=== PATIENT | male | born 1985 | race African-American/Black ===

== ENCOUNTER 2016-12-10 19:26 | Emergency (ER) | payer SELFPAY ==
[2016-12-10 19:36] VITALS: BP 148/83; PULSE 110; TEMP 98.9; BMI 23.6
--- NOTE | 2016-12-10 19:45 | PDOC ---
History of Present Illness - General History Source: Patient Exam Limitations: No Limitations - History of Present Illness Initial Comments: 12/10/16 21:19 Patient is a 31 year old male with no significant past medical history who presents to the ED s/p fall that occurred 5 hours ago. Patient reports riding his longboard down a non steep long hill when he fell and landed on his right shoulder. Patient reports hearing a crack when falling on his shoulder. He reports he did not land on his head or hit his head in any way. Patient reports going to his gym immediately afterwards to have gym medical aids to attempt to fix it before coming to ED. Denies any loss of consciousness. Denies chest pain, SOB. Denies fever, chills. Denies nausea, vomiting. Denies abdominal extremity pain. Denies any other symptoms. Allergies: None Social history: None Surgical history: None PMD: None <Brandon Jim - Last Filed: 12/10/16 21:19> <Autumn Simmons - Last Filed: 12/13/16 06:06> - General Chief Complaint: Pain, Acute Stated Complaint: FELL OFF LONG BOARD HURT RIGHT SHOULDER Time Seen by Provider: 12/10/16 19:33 Past History <Brandon Jim - Last Filed: 12/10/16 21:19> - Past Medical History Other medical history: DENIES - Suicide/Smoking/Psychosocial Hx Smoking History: Current every day smoker Have you smoked in the past 12 months: Yes Number of Cigarettes Smoked Daily: 10 Information on smoking cessation initiated: No Hx Alcohol Use: Yes (SOCIAL) Drug/Substance Use Hx: No Substance Use Type: None <Autumn Simmons - Last Filed: 12/13/16 06:06> - Past Medical History Allergies/Adverse Reactions: Allergies Allergy/AdvReac Type Severity Reaction Status Date / Time No Known Allergies Allergy Verified 12/10/16 19:28 Home Medications: Ambulatory Orders NK [No Known Home Medication] 12/10/16 Review of Systems - Review of Systems Able to Perform ROS?: Yes Comments:: 12/10/16 21:19 GENERAL/CONSTITUTIONAL: No fever or chills. No weakness. HEAD, EYES, EARS, NOSE AND THROAT: No change in vision. No ear pain or discharge. No sore throat. GASTROINTESTINAL: No nausea, vomiting, diarrhea or constipation. GENITOURINARY: No dysuria, frequency, or change in urination. CARDIOVASCULAR: No chest pain or shortness of breath. RESPIRATORY: No cough, wheezing, or hemoptysis. MUSCULOSKELETAL: + RIght shoulder pain No joint or muscle swelling. No neck or back pain. SKIN: No rash NEUROLOGIC: No headache, vertigo, loss of consciousness, or change in strength/ sensation. ENDOCRINE: No increased thirst. No abnormal weight change. HEMATOLOGIC/LYMPHATIC: No anemia, easy bleeding, or history of blood clots. ALLERGIC/IMMUNOLOGIC: No hives or skin allergy. All Other Systems: Reviewed and Negative <Brandon Jim - Last Filed: 12/10/16 21:19> *Physical Exam - Vital Signs Last Vital Signs Temp Pulse Resp BP Pulse Ox 98.9 F 110 H 18 148/83 99 12/10/16 19:30 12/10/16 19:30 12/10/16 19:30 12/10/16 19:30 12/10/16 19:30 - Physical Exam Comments: 12/10/16 21:20 GENERAL: Awake, alert, and fully oriented, in no acute distress HEAD: No signs of trauma EYES: PERRLA, EOMI, sclera anicteric, conjunctiva clear ENT: Auricles normal inspection, hearing grossly normal, nares patent, oropharynx clear without exudates. Moist mucosa NECK: Normal ROM, supple, no lymphadenopathy, JVD, or masses LUNGS: Breath sounds equal, clear to auscultation bilaterally. No wheezes, and no crackles HEART: Regular rate and rhythm, normal S1 and S2, no murmurs, rubs or gallops ABDOMEN: Soft, nontender, normoactive bowel sounds. No guarding, no rebound. No masses EXTREMITIES: +Moderate right shoulder edema.Tenderness of superior aspect of the right shoulder and the superior aspect of the Acromioclavicular joint and the distal clavicle. No edema. No clubbing or cyanosis. No cords, erythema, or tenderness NEUROLOGICAL: Cranial nerves II through XII grossly intact. Normal speech, normal gait SKIN: Warm, Dry, normal turgor, no rashes or lesions noted. <Brandon Jim - Last Filed: 12/10/16 21:19> - Vital Signs Last Vital Signs Temp Pulse Resp BP Pulse Ox 98.9 F 110 H 18 148/83 99 12/10/16 19:30 12/10/16 19:30 12/10/16 19:30 12/10/16 19:30 12/10/16 19:30 <Autumn Simmons - Last Filed: 12/13/16 06:06> Progress Note - Progress Note Progress Note: Documentation has been prepared under my direction and personally reviewed by me in its entirety. I attest that this documented accurately reflects all work, treatment, procedures and medical decision making performed by me. <Autumn Simmons - Last Filed: 12/13/16 06:06> Medical Decision Making - Medical Decision Making As noted above, this 31-year-old man with no known previous history of right shoulder injury presents with pain and swelling around the right shoulder after falling off his skateboard few hours prior to presentation. He denies loss of consciousness/neck pain or any other abnormalities. Shortness of breath/chest pain/abdominal pain are also not present. Exam as noted Right shoulder x-ray shows no evidence of acute fracture. There is a mild increase in space between the acromion process and the lateral aspect of the clavicle. This would suggest that patient has a low-grade shoulder separation. Patient will have a sling which he should wear until seen by an orthopedist. Patient states that he has no insurance and with use [id number] nonsteroidal anti-inflammatory/Tylenol as needed. He was given the [facility] for referral. He states that he will also ask friends for recommendations. <Autumn Simmons - Last Filed: 12/13/16 06:06> *DC/Admit/Observation/Transfer - Attestations Scribe Attestion: 12/10/16 21:20 Documentation prepared by Brandon Jim, acting as medical coding instructor for Autumn Simmons MD/DO. <Brandon Jim - Last Filed: 12/10/16 21:19> <Autumn Simmons - Last Filed: 12/13/16 06:06> Diagnosis at time of Disposition: Shoulder separation Qualifiers: Encounter type: initial encounter Laterality: right Qualified Code(s): S43.004A - Unspecified dislocation of right shoulder joint, initial encounter - Discharge Dispostion Disposition: HOME Condition at time of disposition: Stable - Referrals Referrals: Tommie Villeda MD [Staff Physician] - - Patient Instructions Printed Discharge Instructions: AC Joint Separation, Smoking Cessation Additional Instructions: Ice to shoulder for the next 2 days Use sling on right side at all times until seen by orthopedist Ibuprofen/naproxen/acetaminophen as needed for pain Follow-up with orthopedist (Dr. Villeda group) within the next 5 days Return to ER if you have severe pain
== END 2016-12-10 20:55 | disposition home or self-care (01) ==
LOC: FER 19:26
DX: S43.004A Unspecified dislocation of right shoulder joint, initial encounter (principal); V00.131A Fall from skateboard, initial encounter; Y93.51 Activity, roller skating (inline) and skateboarding; Y92.9 Unspecified place or not applicable; F17.210 Nicotine dependence, cigarettes, uncomplicated
CPT/HCPCS: 73030-TC-RT; 99281-25